=== PATIENT | female | born 1990 | race Caucasian/White ===

== ENCOUNTER 2020-07-14 12:19 | Observation (INO) ==
[2020-07-14 12:25] VITALS: BMI 45.7
[2020-07-14] MEDS ORDERED: NS 1000 ML 1,000 ML IV ONE (13:53)
[2020-07-14] MEDS ORDERED: ZOFRAN INJ 4 MG VIAL IVP ONE (13:53)
--- NOTE | 2020-07-14 13:53 | DR.GENAD ---
HPI Time Seen Time Seen by Provider: 07/14/20 13:51 PCP Primary Care Physician: MAGDIEL HPI Comment HPI Comment: Patient is 8 weeks . States that she has been having N/V despite Zofran. Dr. Waller sent patient to ED for IVF. Notes that she had similar experiences with previous pregnancies. Complaint/Symptoms Chief Complaint:: PATIENT CAME TO ER REPORTS HAVING N/V, 8 WEEKS . CALLED PCP AND WAS TOLD TO COME TO ER FOR FLUIDS. COVID-19 Coronavirus risk:travel/contact w/high risk person: No Has patient experienced Coronavirus symptoms: No Mode of Arrival Mode of Arrival: Ambulatory Timing Onset of Chief Complaint: 06/30/20 PMH PMH Past Medical History: Yes Past Medical History: GERD Past Surgical History: Yes Surgical History: Appendectomy and Tonsillectomy Past Surgical History Comment: EGD, BILATERAL LOWER LEGS Family History History of Family Medical Conditions: No Social History Alcohol Use: None Do you use any recreational Drugs:: No Lives With: Spouse Lives Where: Home Travel Risk Coronavirus risk:travel/contact w/high risk person: No Has patient experienced Coronavirus symptoms: No Infectious screening In the last 2 months have you had wt loss of >10#?: NO Have you had fever, night sweats or hemotysis?: No Have you traveled outside the country in the last 6 months?: No Isolation: Standard ROS Review of Systems Constitutional: See HPI Gastrointestinal/Abdominal: Nausea and Vomiting All Other Systems: Reviewed and Negative PE Vital Signs Vitals: Temperature 98.3 F Pulse Rate 76 Respiratory Rate 16 Blood Pressure 121/69 O2 Sat by Pulse Oximetry 99 General Limitations: No Limitations General Appearance: Alert and In No Apparent Distress Head Head Exam: Normal Inspection, Atraumatic and Normocephalic Eyes Eye exam: Normal Appearance and EOMI Neck Neck Exam: Normal Inspection and Trachea Midline Chest Chest Inspection: Normal Inspection and Symmetric Chest Wall Rise Respiratory Respiratory Exam: Normal Lung Sounds Bilat Respiratory Exam: Bilateral: Clear to Auscultation Cardiovascular Cardiovascular Exam: Regular Rate, Normal Rhythm and Normal Heart Sounds Abdominal Exam Abdominal Exam: Normal Inspection, Soft and Hyperactive Bowel Sounds Extremities Extremities Exam: Normal Inspection Neurologic Neurological Exam: Alert and Oriented X3 Psychiatric Psychiatric Exam: Normal Affect and Normal Mood Skin Skin Exam: Warm, Dry and Intact COURSE Reevaluation 1st: Improved (no further episodes of vomiting) 2nd: Worsened (patient has had recurrence of vomiting in the ED) Consultation Consultation Comments: spoke with Dr. Casarez (fuel conversion technician for [facility]) who accepts the patient for admission Opioid Opioid Risk Tool Age (Prabhakar box if 16-45): Yes History of Preadolescent Sexual Abuse: No Total: 1 Total Score Risk Category: Low Risk Copyright: [facility] predicting aberrant behaviors Diagnosis Discharge Problem: Qualifiers: Weeks of gestation: 8 weeks Qualified Code(s): Z3A.08 - 8 weeks gestation of Nausea & vomiting Qualifiers: Vomiting type: unspecified Vomiting Intractability: non-intractable Qualified Code(s): R11.2 - Nausea with vomiting, unspecified
[2020-07-14] MEDS ORDERED: NS 1000 ML 1,000 ML ONE (13:58)
[2020-07-14] MEDS ORDERED: ZOFRAN INJ 4 MG VIAL ONE (13:58)
[2020-07-14] MEDS ORDERED: ZOFRAN INJ 4 MG VIAL IVP PRN (16:11)
[2020-07-14 16:32] LABS: BASOPHILS # (AUTO) 0.1 X10^3/uL (0.0-0.1); BASOPHILS % (AUTO) 0.5 % (0.2-1.0); EOSINOPHILS # (AUTO) 0.2 x10^3/uL (0.0-0.2); EOSINOPHILS % (AUTO) 1.3 % (0.9-2.9); HEMATOCRIT 43.3 % (36.0-47.0); HEMOGLOBIN 14.7 g/dL (12.0-16.0); LYMPHOCYTES # (AUTO) 2.6 X10^3/uL (1.3-2.9); LYMPHOCYTES % (AUTO) 18.9 % (21.0-51.0); MEAN CORPUSCULAR HEMOGLOBIN 28.6 pg (27.0-34.0); MEAN CORPUSCULAR VOLUME 84.2 fL (80.0-100.0); MEAN PLATELET VOLUME 9.1 fL (7.4-11.0); MONOCYTES # (AUTO) 0.8 x10^3/uL (0.3-0.8); MONOCYTES % (AUTO) 5.7 % (0.0-13.0); NEUTROPHILS # (AUTO) 10.2 x10^3/uL (2.2-4.8); NEUTROPHILS % (AUTO) 73.6 % (42.0-75.0); PLATELET COUNT 262 X10^3/uL (150.0-450.0); RED BLOOD COUNT 5.15 X10^6/uL (3.5-5.4); RED CELL DISTRIBUTION WIDTH 13.1 % (11.6-16.5); WHITE BLOOD COUNT 13.9 X10^3/uL (3.6-10.0)
[2020-07-14 16:46] LABS: ALANINE AMINOTRANSFERASE 48 Units/L (12-78); ALBUMIN 3.4 g/dL (3.4-5.0); ALKALINE PHOSPHATASE 114 Units/L (46-116); ASPARTATE AMINO TRANSFERASE 21 Units/L (15-37); BLOOD UREA NITROGEN 13 mg/dL (7-18); CALCIUM 8.9 mg/dL (8.5-10.1); CARBON DIOXIDE 26.2 mmol/L (21-32); CHLORIDE 104 mmol/L (98-107); CREATININE 0.64 mg/dL (0.55-1.02); SODIUM 140 mmol/L (136-145); eGFR NON BLACK RACES > 60 (>60)
[2020-07-14] MEDS: NS 1000 ML 1,000 ML IV SCH (18:00)
[2020-07-14] MEDS ORDERED: TYLENOL 325 MG TAB PO PRN (18:23)
[2020-07-14] MEDS ORDERED: PROTONIX INJ 40 MG VIAL ONE (18:34)
[2020-07-14] MEDS: ZOFRAN INJ 4 MG VIAL IVP PRN ×2 (18:37→22:07)
[2020-07-14] MEDS: PROTONIX INJ 40 MG VIAL IVP SCH ×2 (18:42→21:42)
[2020-07-14] MEDS ORDERED: POTASSIUM CHL 40 MEQ/NS 0.45% 500 ML IV PRN (22:23)
[2020-07-14] MEDS ORDERED: POTASSIUM CHLORIDE LIQ 20 MEQ UDC PO PRN (22:23)
[2020-07-14] MEDS ORDERED: K-DUR TAB 20 MEQ PO PRN (22:23)
[2020-07-14] MEDS ORDERED: KLOR-CON PO PRN (22:23)
[2020-07-14] MEDS ORDERED: MAGNESIUM SULFATE 1 GRAM/100 mL PREMIX 1 GM/100 ML BAG IV PRN (22:23)
[2020-07-14] MEDS ORDERED: MICRO K EXTEN CAP 10 MEQ PO PRN (22:23)
[2020-07-14] MEDS ORDERED: POTASSIUM CHL 60 MEQ/NS 0.45% 500 ML IV PRN (22:23)
[2020-07-14] MEDS: K-RIDER 10 MEQ/NS 100 ML 10 MEQ/100 ML BAG IV PRN ×2 (22:45→23:34)
[2020-07-15 00:42] LABS: BILIRUBIN,URINE 1+ (NEGATIVE); BLOOD/HEMOGLOBIN,URINE 1+ (NEGATIVE); GLUCOSE, URINE NEGATIVE (NEGATIVE); KETONES,URINE 4+ (NEGATIVE); LEUKOCYTE ESTERASE ,URINE 2+ (NEGATIVE); NITRITES,URINE NEGATIVE (NEGATIVE); PROTEIN,URINE 1+ (NEGATIVE); UROBILINOGEN,URINE 3+ (NORMAL)
[2020-07-15 00:43] LABS: APPEARANCE,URINE SLIGHTLY HAZY (CLEAR); BACTERIA,URINE 1+ /HPF (NEGATIVE); COLOR,URINE AMBER (YELLOW); MUCUS,URINE NUMEROUS /HPF (NEGATIVE); RBC,URINE 0-2 /HPF (0-3); SQUAMOUS EPITHELIAL CELL,UR NUMEROUS /HPF (NEGATIVE)
[2020-07-15] MEDS: NS 1000 ML 1,000 ML IV SCH ×2 (01:55→08:59)
[2020-07-15 02:37] LABS: BASOPHILS # (AUTO) 0.1 X10^3/uL (0.0-0.1); BASOPHILS % (AUTO) 0.6 % (0.2-1.0); EOSINOPHILS # (AUTO) 0.2 x10^3/uL (0.0-0.2); EOSINOPHILS % (AUTO) 1.8 % (0.9-2.9); HEMATOCRIT 39.1 % (36.0-47.0); HEMOGLOBIN 13.4 g/dL (12.0-16.0); LYMPHOCYTES # (AUTO) 2.7 X10^3/uL (1.3-2.9); LYMPHOCYTES % (AUTO) 25.5 % (21.0-51.0); MEAN CORPUSCULAR HEMOGLOBIN 28.9 pg (27.0-34.0); MEAN CORPUSCULAR HGB CONC 34.1 g/dL (33.0-35.0); MEAN CORPUSCULAR VOLUME 84.5 fL (80.0-100.0); MEAN PLATELET VOLUME 8.9 fL (7.4-11.0); MONOCYTES # (AUTO) 0.8 x10^3/uL (0.3-0.8); MONOCYTES % (AUTO) 7.2 % (0.0-13.0); NEUTROPHILS # (AUTO) 6.9 x10^3/uL (2.2-4.8); NEUTROPHILS % (AUTO) 64.9 % (42.0-75.0); PLATELET COUNT 226 X10^3/uL (150.0-450.0); RED BLOOD COUNT 4.63 X10^6/uL (3.5-5.4); RED CELL DISTRIBUTION WIDTH 13.2 % (11.6-16.5); WHITE BLOOD COUNT 10.6 X10^3/uL (3.6-10.0)
[2020-07-15 02:49] LABS: ALANINE AMINOTRANSFERASE 39 Units/L (12-78); ALBUMIN 2.9 g/dL (3.4-5.0); ALKALINE PHOSPHATASE 95 Units/L (46-116); ASPARTATE AMINO TRANSFERASE 19 Units/L (15-37); BLOOD UREA NITROGEN 13 mg/dL (7-18); CALCIUM 8.1 mg/dL (8.5-10.1); CARBON DIOXIDE 23.1 mmol/L (21-32); CHLORIDE 105 mmol/L (98-107); CREATININE 0.56 mg/dL (0.55-1.02); SODIUM 138 mmol/L (136-145); TOTAL PROTEIN 5.9 g/dL (6.4-8.2); eGFR NON BLACK RACES > 60 (>60)
[2020-07-15] MEDS: ZOFRAN INJ 4 MG VIAL IVP PRN ×3 (03:08→08:52)
[2020-07-15] MEDS: K-RIDER 10 MEQ/NS 100 ML 10 MEQ/100 ML BAG IV PRN ×2 (03:09→04:10)
[2020-07-15 08:26] VITALS: BP 118/57
[2020-07-15] MEDS: PROTONIX INJ 40 MG VIAL IVP SCH (08:41)
== END 2020-07-15 11:35 | disposition home or self-care (01) ==
LOC: ER 12:19 → ICU 12:19
PROVIDERS: ADMIT Specialist; ATTEND Obstetrics & Gynecology
DX: O98.511 Other viral diseases complicating pregnancy, first trimester; U07.1 COVID-19; O21.0 Mild hyperemesis gravidarum; Z3A.08 8 weeks gestation of pregnancy

== ENCOUNTER 2021-02-13 22:47 | Inpatient (IN) ==
[~2021-02-13 22:47] MED LIST: DIPRIVAN VIAL ONE; LTA KIT LIDOCAINE 4% ONE; REGLAN INJ 10 MG VIAL ONE; SUPRANE ONE; TORADOL 30 MG VIAL ONE; XYLOCAINE 2 % (PLAIN) ONE; ZOFRAN INJ 4 MG VIAL ONE
[2021-02-13 22:57] VITALS: BMI 44.4
[2021-02-13 23:26] LABS: AMNISURE ROM TEST THERE IS A RUPTURE (NO RUPTURE)
[2021-02-13] MEDS ORDERED: AMPICILLIN VIAL 2 GRAM 2 G in NS 100 ML IV + SPIKE MINIBAG* 100 ML IV ONE (23:32)
[2021-02-13] MEDS ORDERED: AMPICILLIN VIAL 2 GRAM ONE (23:33)
[2021-02-13] MEDS ORDERED: NS 100 ML IV + SPIKE MINIBAG* 100 ML IV ONE (23:33)
[2021-02-13] MEDS ORDERED: D5 1/2 NS 1,000 ML 1,000 ML IV ONE (23:35)
[2021-02-13] MEDS ORDERED: D5 1/2 NS 1,000 ML 1,000 ML IV SCH (23:45)
[2021-02-14] MEDS ORDERED: PITOCIN ONE (00:01)
[2021-02-14] MEDS ORDERED: D5 1/2 NS 1,000 ML 1,000 ML IV ONE (00:01)
[2021-02-14] MEDS ORDERED: BETADINE SOLN ONE ×2 (00:01→07:08)
[2021-02-14] MEDS ORDERED: D5 LR + PITOCIN 10 UNITS/L 10 UNITS/1,000 ML BAG IV ONE (00:02)
[2021-02-14] MEDS ORDERED: D5 1/2 NS 1,000 mL + PITOCIN 20 UNITS/L IV 20 UNITS/1,000 ML BAG IV ONE (00:02)
[2021-02-14] MEDS ORDERED: LR 1,000 ML IV 1,000 ML IV ONE ×2 (00:02→07:00)
[2021-02-14] MEDS ORDERED: FENTANYL VIAL INJ 100 mcg ONE ×2 (00:02→07:18)
[2021-02-14] MEDS ORDERED: STADOL INJ ONE (00:03)
[2021-02-14] MEDS ORDERED: NAROPIN EPIDURAL 0.2% 0 ML ONE (00:03)
[2021-02-14] MEDS ORDERED: NEO-SYNEPHRINE INJ ONE (00:15)
[2021-02-14] MEDS ORDERED: EPHEDRINE SULFATE INJ ONE (00:41)
[2021-02-14] MEDS ORDERED: PHENERGAN INJ 25 MG IM PRN ×3 (01:10→08:29)
[2021-02-14] MEDS ORDERED: D5 LR + PITOCIN 10 UNITS/L 10 UNITS/1,000 ML BAG IV PRN (01:10)
[2021-02-14] MEDS ORDERED: REGLAN INJ 10 MG VIAL IVP PRN ×2 (01:10→08:29)
[2021-02-14] MEDS ORDERED: PITOCIN IVP ONE (01:10)
--- NOTE | 2021-02-14 01:10 | DR.OB ---
OB Quick Note - Assessment/Plan Assessment/Plan: Delivery Note TYPESETTING MACHINE OPERATOR/TENDER 02/14/21 at 12:55am Patient complete and pushing. Head delivered over intact perineum. No nuchal cord. Nose and mouth bulb suctioned. Body delivered over intact perineum. Cord clamped x 2 and cut. Infant handed to attendant. Cord sent for gases. Placenta delivered spontaneously / intact / 3 vessel cord. No CVX / vaginal / perineal tears. Viable male infant, VTX/OA, wt=8'5" and wt=/9, stable to NBN. Mother stable to RR. ZHU=780im.
[2021-02-14] MEDS ORDERED: STADOL INJ IVP PRN (01:11)
[2021-02-14] MEDS ORDERED: D5 1/2 NS 1,000 ML 1,000 ML IV SCH (02:00)
[2021-02-14] MEDS: D5 1/2 NS 1,000 ML 1,000 ML with PITOCIN 20 UNITS IV SCH ×8 (02:00→18:33)
[2021-02-14] MEDS ORDERED: DERMOPLAST PAIN RELIEF SPRAY TOP PRN (03:09)
[2021-02-14] MEDS ORDERED: MILK OF MAGNESIA PO PRN (03:09)
[2021-02-14] MEDS ORDERED: AMBIEN PO PRN (03:09)
[2021-02-14] MEDS ORDERED: HYPERRHO S/D (or RHOGAM) IM PRN (03:09)
[2021-02-14] MEDS ORDERED: ADACEL or BOOSTRIX TDaP VACCINE IM ONE ×2 (03:09→21:27)
[2021-02-14 03:38] LABS: HEMATOCRIT 33.7 % (36.0-47.0); HEMOGLOBIN 11.5 g/dL (12.0-16.0)
[2021-02-14] MEDS ORDERED: ANCEF VIAL 1 GRAM ONE ×2 (07:00→07:02)
[2021-02-14] MEDS ORDERED: NS 100 ML IV 100 ML ONE (07:01)
[2021-02-14] MEDS ORDERED: ZEMURON 50 MG VIAL ONE (07:21)
[2021-02-14] MEDS ORDERED: BRIDION ONE (07:21)
[2021-02-14] MEDS ORDERED: SUPRANE ONE (07:37)
[2021-02-14] MEDS ORDERED: ZOFRAN INJ 4 MG VIAL IVP PRN (08:29)
[2021-02-14] MEDS ORDERED: BENADRYL INJ 50 MG VIAL IVP PRN (08:29)
[2021-02-14] MEDS ORDERED: BARHEMSYS INJ IVP PRN (08:29)
[2021-02-14] MEDS: DILAUDID INJ IVP PRN ×3 (08:30→08:48)
[2021-02-14] MEDS: MOTRIN TAB 800 MG PO PRN ×2 (09:30→20:39)
[2021-02-14] MEDS: PRENATAL PLUS PO SCH (10:00)
[2021-02-14] MEDS ORDERED: MYLICON TAB 80 MG CHEW PO PRN (16:23)
[2021-02-14] MEDS ORDERED: PERCOCET TAB 5/325 MG PO PRN (16:23)
[2021-02-14] MEDS: BACTROBAN TOPICAL OINT TOP SCH ×2 (18:53→22:00)
[2021-02-15] MEDS: D5 1/2 NS 1,000 ML 1,000 ML with PITOCIN 20 UNITS IV SCH ×2 (02:24)
[2021-02-15] MEDS: BACTROBAN TOPICAL OINT TOP SCH (06:10)
[2021-02-15] MEDS: PRENATAL PLUS PO SCH (08:00)
[2021-02-15] MEDS: MOTRIN TAB 800 MG PO PRN (08:00)
[2021-02-15 10:52] VITALS: BP 118/62
== END 2021-02-15 10:50 | disposition home or self-care (01) | DRG 798 ==
LOC: ER 22:48 → LD 23:58 → MED/SURG 02-14 03:39
PROVIDERS: ADMIT Specialist; ATTEND Specialist
DX: Z01.812 Encounter for preprocedural laboratory examination; Z30.2 Encounter for sterilization; Z37.0 Single live birth; O98.82 Other maternal infectious and parasitic diseases complicating childbirth; Z23 Encounter for immunization; Z01.818 Encounter for other preprocedural examination; Z3A.38 38 weeks gestation of pregnancy; B95.1 Streptococcus, group B, as the cause of diseases classified elsewhere; Z20.822 Contact with and (suspected) exposure to COVID-19